=== PATIENT | female | born 1955 | race Caucasian/White ===

== ENCOUNTER → 2016-11-02 | Day surgery (SDC) | payer OTHER ==
[~2016-11-02] MED LIST: ADVA250A; BUPIVACAINE HCL PF 0.25% 30 ML VIAL ONE; BUPIVACAINE/EPINEPHRINE 0.25% 50 ML VIAL ONE; CLINDAMYCIN PHOS 600 MG/4 ML VIAL ONE; KETOROLAC TROMETHAMINE 30 MG/ML (IVP) VIAL IV PUSH ONE; LACTATED RINGER'S 1000 ML INJ 1,000 ML ONE; MIDAZOLAM HCL 2 MG/2 ML VIAL ONE; ONDANSETRON HCL 4 MG/2 ML VIAL IV PUSH ONE; PROPOFOL 100 MG/10 ML INJ IV ONE; SODIUM CHLORIDE 0.9% SOLN 100 ML (PAB) BAG IV ONE
--- NOTE | 2016-11-04 13:47 | MP ---
cc: MARILY WALDROP DPM DATE OF SURGERY: 11/02/2016 PREOPERATIVE DIAGNOSIS Painful hardware, right foot. POSTOPERATIVE DIAGNOSIS Painful hardware, right foot. PROCEDURE PERFORMED Removal of painful hardware of the right first and fifth metatarsal. SPECIMEN None. ESTIMATED BLOOD LOSS Less than 30 mL. COMPLICATIONS None. ANESTHESIA General with local. TOURNIQUET TIME Approximately 40 minutes at a setting of 215 mmHg about the patient's mid right calf. PLAN OF ACTIVITY PACU then discharge home once stable per same-day surgery criteria. JUSTIFICATION OF PROCEDURE This is a pleasant 61-year-old female who underwent bunion and bunionette surgery. Surgery healed uneventfully, however, there were palpable screw heads and plate that she wishes to have removed. The patient was educated on removal of the hardware may cause a insufficiency fracture and delayed healing. She could be immobilized in a Cam walking boot for 6-8 weeks. PROCEDURE IN DETAIL Under mild sedation the patient was brought to the operating room, placed on the operating table in the supine position. Following the induction of LMA general anesthesia, local anesthesia was obtained about the medial and lateral hind foot utilizing standard block fashion. The patient's foot was then scrubbed, prepped and draped in the usual aseptic fashion. The foot was elevated, exsanguinated. The previously placed mid ankle tourniquet was inflated at 215 mmHg and incision was made over the dorsal aspect of the first metatarsal medial cuneiform. Sharp and blunt dissection was carried down, subperiosteal dissection took place revealing [employer] screws. There was no fractured hardware. The screws were then removed in toto without any issues. Fluoroscopy was used to visualize no motion at the first metatarsal medial cuneiform joint. Incision was then made over the fifth metatarsal distally. Sharp and blunt dissection was carried down, subperiosteal, dissection was performed revealing two screws at the distal fifth metatarsal. This was then resected without any difficulty. Fluoroscopy was used to visualize the joint surface. There was no instability noted at the osteotomy or previous osteotomy site. Wounds were flushed with copious amounts of normal saline. Subperiosteal closure took place utilizing Vicryl. Skin was closed utilizing Nylon. Upon relieving the tourniquet there was a prompt hyperemic response to all digits without any delayed capillary refill time. A bulky bandage was placed and the patient was transferred from OR to PACU with all vital signs stable. She received a controlled ankle motion boot. She is protected weight bear to tolerance. She will follow up within 3-5 days. NIC Bell/SHANNAN /2:48 PM /1:27 PM
== END | disposition home or self-care (01) ==
LOC: ESDC 11:55
PROVIDERS: ATTEND Podiatrist Foot & Ankle Surgery
DX: T84.84XA Pain due to internal orthopedic prosthetic devices, implants and grafts, initial encounter (principal)
CPT/HCPCS: 01480; 20680; 73620; 76000; J1885; J2250; J2405; J3010; J7120